=== PATIENT | male | born 1950 | race Caucasian/White ===

== ENCOUNTER 2020-05-15 20:06 | Emergency (ER) | payer OTHER ==
[~2020-05-15] VITALS: Ht 177.8 cm; Wt 81.6 kg
[2020-05-15 20:06] VITALS: BP 134/75
[~2020-05-15 20:06] MED LIST: AUGMENTIN 500 M1 TAB PO
== END 2020-05-15 22:11 | disposition home or self-care (01) ==
LOC: ED 20:06
DX: M25.462 Effusion, left knee (principal)

== ENCOUNTER → 2022-11-03 | Outpatient (CLI) | payer MEDICARE, OTHER | END | disposition home or self-care (01) | LOC: RAD/SH 08:14 | PROVIDERS: ATTEND Internal Medicine | DX: I69.921 Dysphasia following unspecified cerebrovascular disease (principal); R13.12 Dysphagia, oropharyngeal phase ==

== ENCOUNTER 2023-04-14 16:47 | Emergency (ER) | payer MEDICARE, OTHER ==
[~2023-04-14] VITALS: Ht 177.8 cm; Wt 76.7 kg
[2023-04-14 17:07] VITALS: BP 126/56
[2023-04-14] MEDS ORDERED: LEVOFLOXACIN750 M2 PO ×2 (18:18→18:31)
== END 2023-04-14 18:46 | disposition home or self-care (01) ==
LOC: ED 16:47
DX: S09.90XA Unspecified injury of head, initial encounter (principal); M25.511 Pain in right shoulder; Z98.890 Other specified postprocedural states; Z87.891 Personal history of nicotine dependence; W17.89XA Other fall from one level to another, initial encounter; Y93.89 Activity, other specified; Y92.009 Unspecified place in unspecified non-institutional (private) residence as the place of occurrence of the external cause; Y99.8 Other external cause status

== ENCOUNTER → 2023-08-24 | Outpatient (CLI) | payer OTHER ==
[~2023-08-24] MED LIST changes: +LEVOFLOXACIN750 M2 PO
== END | disposition home or self-care (01) ==
LOC: MRI 13:08
PROVIDERS: ATTEND Occupational Therapist Pediatrics
DX: I67.82 Cerebral ischemia (principal); G20.A1 Parkinson's disease without dyskinesia, without mention of fluctuations; H74.8X3 Other specified disorders of middle ear and mastoid, bilateral

== ENCOUNTER 2025-05-29 13:35 | Emergency (ER) | payer MEDICARE, OTHER ==
[~2025-05-29] VITALS: Ht 177.8 cm; Wt 81.6 kg
[~2025-05-29 13:35] MED LIST changes: +ASPIRIN ADULT L81 M1 PO; +FLUOXETINE HCL60 MG PO; +LEVETIRACETAM500 MG PO; +LOSARTAN POTASS50 M1 PO; +PRAZOSIN HCL2 MG PO; +PREDNISONE10 MG PO; +ROSUVASTATIN CA10 MG PO; +TRAMADOL HCL50 MG PO; +TYLENOL325 M2 PO; +VITAMIN B121000 MC3 PO; +ZITHROMAX250 MG PO; +[UNRECOGNIZED DRUG - CODE]
[2025-05-29 13:37] VITALS: BP 116/77
[2025-05-29] MEDS ORDERED: SODIUM CHLORIDE 0.9% 1,000 ML IV ONE (13:45)
[2025-05-29] MEDS ORDERED: Ondansetron Hydrochloride 4 MG/2 ML VIAL IV ONE (13:45)
[2025-05-29 14:03] LABS: BASO # 0.1 10*3/uL (0.0-0.1); BASO % 0.9 % (0.0-1.0); EOS # 0.5 10*3/uL (0.0-0.4); EOS % 7.6 % (1.0-4.0); MEAN CELL VOLUME 101.2 fl (80.0-94.0); MEAN CORPUSCULAR HGB 35.0 pg (27.0-31.0); MEAN PLATELET VOLUME 9.7 fl (9.6-12.3); MONO # 0.6 10*3/uL (0.1-1.0); MONO % 8.8 % (3.0-9.0); NEUT # 3.9 10*3/uL (2.3-7.9); NEUT % 61.4 % (47.0-73.0); NUCLEATED RED BLOOD CELL 0.0 % (0.0-0.0); NUCLEATED RED BLOOD CELL 0.0 10*3/uL (0.0-0.0); PLATELET COUNT AUTOMATED 261 10*3/uL (130-400); RED CELL DISTRI WIDTH 13.4 % (0-14.5)
[2025-05-29 14:24] LABS: BUN 7 mg/dl (9-23)
[2025-05-29] MEDS ORDERED: Ondansetron4 MG PO (15:42)
== END 2025-05-29 17:07 | disposition home or self-care (01) ==
LOC: ED 13:35
PROVIDERS: Emergency Medicine
DX: R55 Syncope and collapse (principal); R11.2 Nausea with vomiting, unspecified; F17.210 Nicotine dependence, cigarettes, uncomplicated; Z98.890 Other specified postprocedural states

== ENCOUNTER 2025-08-31 12:54 | Emergency (ER) | payer MEDICARE, OTHER ==
[~2025-08-31] VITALS: Ht 172.7 cm; Wt 82.1 kg
[~2025-08-31 12:54] MED LIST changes: +Ondansetron4 MG PO
[2025-08-31 13:07] VITALS: BP 97/55
[2025-08-31] MEDS ORDERED: SODIUM CHLORIDE 0.9% 500 ML IV ONE (13:10)
[2025-08-31 13:29] LABS: BASO # 0.1 10*3/uL (0.0-0.1); BASO % 0.8 % (0.0-1.0); EOS # 0.4 10*3/uL (0.0-0.4); EOS % 4.8 % (1.0-4.0); MEAN CELL VOLUME 99.0 fl (80.0-94.0); MEAN CORPUSCULAR HGB 33.5 pg (27.0-31.0); MEAN PLATELET VOLUME 9.8 fl (9.6-12.3); MONO # 0.5 10*3/uL (0.1-1.0); MONO % 6.3 % (3.0-9.0); NEUT # 4.5 10*3/uL (2.3-7.9); NEUT % 62.5 % (47.0-73.0); NUCLEATED RED BLOOD CELL 0.0 % (0.0-0.0); NUCLEATED RED BLOOD CELL 0.0 10*3/uL (0.0-0.0); PLATELET COUNT AUTOMATED 214 10*3/uL (130-400); RED CELL DISTRI WIDTH 13.0 % (0-14.5)
[2025-08-31 13:51] LABS: BUN 11 mg/dl (9-23)
== END 2025-08-31 16:02 | disposition left against medical advice (07) ==
LOC: ED 12:54
PROVIDERS: Student in an Organized Health Care Education/Training Program
DX: R55 Syncope and collapse (principal); F03.90 Unspecified dementia, unspecified severity, without behavioral disturbance, psychotic disturbance, mood disturbance, and anxiety; F17.210 Nicotine dependence, cigarettes, uncomplicated; Z98.890 Other specified postprocedural states